=== PATIENT | female | born 1950 | race Two or more races ===

== ENCOUNTER 2018-11-03 16:57 | Emergency (ER) | payer OTHER ==
[~2018-11-03] VITALS: Ht 160 cm; Wt 86.2 kg
[~2018-11-03 16:57] MED LIST: EVISTA60 MG; LOSARTAN POTASS25 MG; SINGULAIR4 MG; TRADJENTA5 MG
[2018-11-03] MEDS ORDERED: JANUVIA25 MG (18:00)
== END 2018-11-03 23:03 | disposition home or self-care (01) ==
LOC: ER 16:57
DX: A08.39 Other viral enteritis (principal); R10.84 Generalized abdominal pain; R11.2 Nausea with vomiting, unspecified; N39.0 Urinary tract infection, site not specified

== ENCOUNTER → 2025-06-24 | Emergency (ER) | payer OTHER ==
[~2025-06-24] VITALS: Ht 165.1 cm; Wt 67.6 kg
[~2025-06-24] MED LIST changes: +0.9 % SODIUM CHLORIDE 1,000 ML IV ONE; +CIPRO500 MG PO; +CIPROFLOXACIN IN 5 % DEXTROSE 400 MG/200 ML PIGGYBAG IV ONE; +FAMOtidine 10 MG/ML (4ML VIAL) IV ONE; +JANUVIA25 MG; +KETOROLAC TROMETHAMINE 30 MG VIAL IV ONE; +LEVSIN/SL0.125 MG SL; +PEPCID AC20 MG PO; +PROBIOTIC1 EAC2 PO
[2025-06-24 14:48] LABS: BASO % 0.3 % (0.1-1.2); EOS # 0.00 (0.04-0.54); EOS % 0.0 % (0.7-7.0); LYMPH # 0.77 (1.18-3.74); LYMPH % 8.8 % (19.3-53.1); MEAN PLATELET VOLUME 10.60 fl (9.4-12.4); MONO # 0.54 (0.24-0.82); MONO % 6.2 % (4.7-12.5); NEUT # 7.37 (1.56-6.13); NEUT % 84.5 % (34.0-71.1); RED CELL DISTRIBUTION WIDTH 12.3 % (11.6-14.4)
[2025-06-24 15:05] LABS: INR 1.09
[2025-06-24 15:08] LABS: ALT/SGPT 29.0 U/L (12-78); AST/SGOT 37.0 U/L (15-37); BILIRUBIN TOTAL 0.95 mg/dL (0.3-1.2); BUN CREA RATIO 20.0 (7.0-25.0); CREATININE SERUM 1.18 mg/dL (0.55-1.02); GFR 44.53; GLOBULINA 4.8 G/DL (2.4-3.5); GLUCOSE FASTING 174.0 mg/dL (65-100); OSMOLALITY SERUM 286.0 MOSM/KG (275-295)
[2025-06-24 17:52] LABS: URINE APPEARANCE Cloudy; URINE BILIRRUBIN Negative (NEGATIVE); URINE BLOOD Small; URINE COLOR Dark Yellow; URINE KETONE 15 (NEGATIVE); URINE LEUKOCYTE Small; URINE NITRATE Negative; URINE UROBILINOGEN 0.2 E.U./dl
[2025-06-24 17:57] LABS: URINE CAST 5.93 uL (0.0-1.40); URINE EPITHELIAL CELLS 40.3 uL (0.0-38.8); URINE WBC 558.2 uL (0.0-23.2)
[2025-06-24 18:34] LABS: URINE BACTERIA > 9821.5 uL (0.0-1933); URINE GLUCOSE 100 MG/DL (NEGATIVE); URINE PROTEIN 300 (NEGATIVE); URINE RBC 1.6 uL (0.0-20.8)
[2025-06-24 18:38] LABS: URINE MUCUS NEGATIVE; URINE YEAST NEGATIVE /hpf
== END | disposition home or self-care (01) ==
LOC: ER 10:05
PROVIDERS: General Practice
DX: R19.7 Diarrhea, unspecified (principal); R10.9 Unspecified abdominal pain; R11.2 Nausea with vomiting, unspecified; Z88.0 Allergy status to penicillin; I10 Essential (primary) hypertension; Z85.3 Personal history of malignant neoplasm of breast; E11.9 Type 2 diabetes mellitus without complications; Z79.84 Long term (current) use of oral hypoglycemic drugs
CPT/HCPCS: 36415; 74176; 96365; 96366; 99284; J0744; J1885; J3490; J7030